=== PATIENT | female | born 1945 | race Caucasian/White ===

== ENCOUNTER 2016-06-11 13:03 | Emergency (ER) | payer OTHER ==
[~2016-06-11] VITALS: Wt 89.0 kg
[2016-06-11] MEDS ORDERED: IBUPROFEN 800 MG TAB PO ONE (17:30)
--- NOTE | 2016-06-11 17:55 | RADRPT ---
PROCEDURE: XR Hand. CLINICAL INDICATION: Right hand pain and swelling. TECHNIQUE: Three views. Frontal, lateral, and oblique images of the right hand were obtained. COMPARISON: No prior studies are available for comparison. FINDINGS: There is no fracture or dislocation. There is diffuse soft tissue swelling. There are degenerative changes of the first carpal metacarpal joint with osteophytes noted. There is no lytic or blastic lesion. There is no radiopaque foreign body. IMPRESSION: 1. Diffuse soft tissue swelling. 2. Degenerative changes of the first carpal metacarpal joint. 3. No radiopaque foreign body. RPTAT: QQ .Leandro Ellis MD, MD Date Time Electronically viewed and signed by .Leandro Ellis MD, MD on 06/11/2016 17:55 .R/
--- NOTE | 2016-06-11 18:16 | ERD ---
ER Documentation Chief Complaint Date/Time DATE: 06/11/16 TIME: 18:13 Chief Complaint right hand swelling no trauma. possible reaction to chemical since friday HPI This is a 70-year-old female who presents to the emergency room for evaluation of swelling of her right hand. This patient states that she was ringing out a mop and noted some swelling on the palm of right hand. She states that the swelling started on June 07. She states that today she noted the swelling has gotten much larger and she came to the ER for evaluation. She denies any fevers associated with this, she states is slightly painful when she moves and she does state that she feels fluid in her palm. ROS All systems reviewed and are negative except as per history of present illness. PMhx/Soc Medical and Surgical Hx: pt denies Medical Hx, pt denies Surgical Hx Hx Alcohol Use: No Hx Substance Use: No Hx Tobacco Use: No Smoking Status: Never smoker Physical Exam Vitals Vital Signs Date Time Temp Pulse Resp B/P Pulse Ox O2 Delivery O2 Flow Rate FiO2 06/11/16 13:15 98.4 97 20 137/84 99 Physical Exam INITIAL VITAL SIGNS: Reviewed by me GENERAL: The patient is well developed and appropriate for usual state of health in no apparent distress HEENT: Pupils equal, round, and reactive to light. EOMI. There is no scleral icterus. NECK: C-spine is soft and supple, there is no meningismus. There is no cervical lymphadenopathy. LUNGS: Clear to auscultation bilaterally. There are no rales, wheezes or rhonchi. HEART: Regular rate and rhythm, no murmurs, clicks, rubs or gallops. ABDOMEN: Soft, non-tender, non-distended. There are bowel sounds in all four quadrants. No rebound or guarding. EXTREMITIES: There is a large 10 cm x 10 cm hematoma which encompasses the entire palmar aspect of the right hand, mild soft tissue swelling of the surrounding tissue,there is no peripheral cyanosis or edema. No focal swelling or erythema. NEUROLOGICAL: The patient moves all four extremities with 5/5 strength. Cranial nerves II - XII are intact. Normal gait. Alert and oriented SKIN: Palpable right radial and ulnar pulses bilaterally there is no apparent rash or petechiae. HEME/LYMPHATIC: There is no evidence of excessive bruising or lymphedema. PSYCHIATRIC: The patient does not appear anxious or depressed. Results 24 hrs Current Medications Medications (Trade) Dose Ordered Sig/Deidre Route PRN Reason Start Time Stop Time Status Last Admin Dose Admin Ibuprofen (Motrin) 800 mg ONCE ONCE PO 06/11/16 17:30 06/11/16 17:31 DC 06/11/16 17:19 Procedures/MDM X-ray Hand 3V interpreted by me: Scaphoid: Normal Bones: No fracture Joints: No dislocation Foreign body: None This 70-year-old female presents to the emergency room for evaluation of palmar swelling. This patient had a large hematoma which comprised the entire palmar aspect of her right hand. I did obtain an x-ray which does not show any foreign body. I was able to drain the hematoma. Please see incision and drainage so. This patient did have mild purulent discharge after almost all the fluid was evacuated. She is afebrile at this time. She was given a tetanus shot, Rocephin 500 mg IM. She was also given Bactrim p.o., Keflex p.o. in the emergency room. She will be discharged home with a prescription for Bactrim, Keflex and instructions to follow-up either with her primary care physician, or return to the emergency room on June 14 for reevaluation to ensure this infection is not spreading. This patient had her hand wrapped with Silvadene cream and a wet to dry dressing. Abscess Incision and Drainage with irrigation by me: Location: Right palm Anesthesia: None Technique: [Irrigated. Disrupted loculations w/ instrumentation ] Packing: [None] Complications: [Neurovascularly intact post procedure] 48 hour wound check. Scar minimization instructions given. [ED Ultrasound: Abscess localized by me using concurrent ultrasound guidance and assessment of the anatomy. Real time image archived in the medical record confirms anatomy.] Patient's skin symptoms have stabilized while they have been evaluated in the department and are appropriate for outpatient care and work up. Exam and w/u not consistent w/ sepsis, deep space infection, or foreign body. Departure Diagnosis: Primary Impression: Traumatic hematoma of right hand Additional Impression: Injury of hand Condition: Stable LAVELL GOODMAN DO Jun 11, 2016 18:16
[2016-06-11] MEDS ORDERED: CEPH500C PO (18:18)
[2016-06-11] MEDS ORDERED: BACTDS PO (18:18)
[2016-06-11] MEDS ORDERED: CEFTRIAXONE 500 MG INJ IM ONE (18:30)
[2016-06-11] MEDS ORDERED: TRIMETHOPRIM/SULFAMETHOX (DS) TAB PO ONE (18:30)
[2016-06-11] MEDS ORDERED: DIPHTH/TET/ACEL PERTUSS (ADULT) 0.5 ML VIAL IM* ONE (18:30)
[2016-06-11] MEDS ORDERED: CEPHALEXIN 500 MG CAP PO ONE (18:30)
[2016-06-11] MEDS ORDERED: SILVER SULFADIAZINE 1% 50 GM CR TOP ONE (18:30)
[2016-06-11 18:45] VITALS: BP 130/68; PULSE 92; RESP 20; TEMP 98.8
== END 2016-06-11 18:51 | disposition home or self-care (01) ==
LOC: E/R 13:03
DX: S60.221A Contusion of right hand, initial encounter (principal); X58.XXXA Exposure to other specified factors, initial encounter; Y92.9 Unspecified place or not applicable; Z23 Encounter for immunization
CPT/HCPCS: 10061; 73130; 90471; 90715; 96372; J0696; Z7502; Z7610